=== PATIENT | female | born 1940 | race Caucasian/White ===

== ENCOUNTER 2016-09-18 16:00 | Emergency (ER) | payer MEDICARE ==
[~2016-09-18] VITALS: Ht 165.1 cm; Wt 81.1 kg
[~2016-09-18 16:00] MED LIST: AMLO5TAB2 PO; ATOR10TA20 PO; HYDR-2164 PO; HYDR-3989 PO; LABE200T PO; MEGE40TA PO; POTA20TA87 PO; RIVA20TA PO; SOTA80TA PO
--- OUTSIDE RECORDS SUMMARY | 2016-09-18 16:04 | XMS REPORT | Referral Summary ---
Author Author [facility] Organization [facility] Address Unknown Phone Unavailable Care Team Providers Care Antisqueak Chalker Name Role Phone HumbertopeaceMeron Primary Care Physician [phone] Encounter Date(s): 05/26/16 - 05/26/16 [facility] [address] [place], [place] [address] Discharge Disposition: 01-Home or Self Care Attending Physician: Ho Gallo MD Admitting Physician: Ho Gallo MD Vital Signs No data available for this section Problem List Condition Effective Dates Status Health Status Informant Acute Active pain(Confirmed) Arthritis(Confirmed) Active At risk for activity Active intolerance(Confirme d)1 At risk for Active infection(Confirmed) 2 At risk for Active injury(Confirmed)3 At risk of pressure Active sore(Confirmed) Atrial 03/08/14 Active fibrillation(Confirm ed)4 Blood clot in Resolved groin-2011(Confirmed ) Bronchitis(Confirmed Active ) Cataract(Confirmed) Active Chicken Active pox(Confirmed) hepatitis- developed Resolved from sulfa allergy(Confirmed) Hypercalcemia(Confir Active med) Hyperlipidemia(Confi Resolved rmed) Hypertension(Confirm Resolved ed) Impaired skin Active integrity(Confirmed) 5 Jaundice(Confirmed) Active Primary Active osteoarthritis of shoulder(Confirmed) Obesity(Confirmed) Active patient Pain(Confirmed) Active Pneumonia(Confirmed) 1997 Resolved Polymyalgia Active rheumatica(Confirmed ) 1Problem added automatically by system based on initiation of At Risk for Activity Intolerance Plan of Care 2Problem added automatically by system based on initiation of At Risk for Infection in Nutrition Plan of Care 3Problem added automatically by system based on initiation of Risk for Injury Plan of Care 4cardioversion 03/09/14 5Problem added automatically by system based on initiation of Impaired Skin Integrity Plan of Care Allergies, Adverse Reactions, Alerts Substance Reaction Severity Status angiotensin converting Active enzyme inhibitors morphine Active Sulfanilamide Active TraMADol Hydrochloride ER Active Medications atorvastatin 10 mg oral tablet 10 mg 1 tabs, Oral, Bedtime (once a day), 0 Refill(s) Start Date: 10/12/13 Status: Ordered labetalol 200 mg oral tablet 200 mg 1 tabs, Oral, BID, 0 Refill(s) Start Date: 10/12/13 Status: Ordered Norvasc 5 mg oral tablet 5 mg 1 tabs, Oral, Daily, 0 Refill(s) Start Date: 04/30/14 Status: Ordered potassium chloride 20 mEq oral tablet, extended release 20 mEq 1 tabs, Oral, Daily, 0 Refill(s) Start Date: 10/28/14 Status: Ordered sotalol 40 mg, Oral, BID, 0 Refill(s) Start Date: 03/19/14 Status: Ordered spironolactone 25 mg oral tablet 25 mg 1 tabs, Oral, Daily, 0 Refill(s) Start Date: 02/24/16 Status: Ordered Xarelto 10 mg oral tablet 10 mg 1 tabs, Oral, Daily, 0 Refill(s) Start Date: 03/19/14 Status: Ordered Results No data available for this section Immunizations Given and Recorded Vaccine Date Status Refusal Reason pneumococcal 23-polyvalent vaccine1 10/26/13 Given 1Early/Late Reason: Other : prioritizing Procedures Procedure Date Related Diagnosis Body Site Arthroplasty Shoulder Total Replacement 01/06/16 (Right)1 Atrial cardioversion 03/09/14 Arthroplasty Shoulder Total Replacement 10/25/13 (Left)2 Arthroplasty Shoulder Total Revision (Left)3 10/25/13 cholecystectomy 1990 Appendectomy Bilateral cataract surgery-1999 c5-7 fusion 2000 Cataract Hysterectomy hysterectomy- 1973 L5-S1 discectomy X2- 1994 Left shoulder jaleesa-arthroplasty- 2012 lt total knee arthroplasty 2011 R knee scope - 1984 R knee scope -1994 R total knee arthroplasty -2011 small bowel resection for obstruction- 2010 1auto-populated from documented surgical case 2auto-populated from documented surgical case 3auto-populated from documented surgical case Social History Social History Type Response Smoking Status Never smoker Assessment and Plan Extracted from: Title: Office Visit Note Author: Ho Gallo MD Date: 05/26/16 Assessment/Plan Orthopedic aftercare Ordered: Office Visit Level 3 Est 94271
--- OUTSIDE RECORDS SUMMARY | 2016-09-18 16:04 | XMS REPORT | Referral Summary ---
Author Author [facility] Organization [facility] Address Unknown Phone Unavailable Care Team Providers Care Molecular Physicist Name Role Phone Meron White Primary Care Physician [phone] Encounter [facility] [id number] Date(s): 08/11/15 - 08/11/15 [facility] [address] [place], [place] [address] Discharge Disposition: 01-Home or Self Care Attending Physician: Ho Gallo MD Admitting Physician: Ho Gallo MD Vital Signs No data available for this section Problem List Condition Effective Dates Status Health Status Informant Acute Active pain(Confirmed) Arthritis(Confirmed) Active At risk for Active injury(Confirmed)1 At risk of pressure Active sore(Confirmed) Atrial 03/08/14 Active fibrillation(Confirm ed)2 Blood clot in Resolved groin-2011(Confirmed ) Bronchitis(Confirmed Active ) Cataract(Confirmed) Active Chicken Active pox(Confirmed) hepatitis- developed Resolved from sulfa allergy(Confirmed) Hyperlipidemia(Confi Resolved rmed) Hypertension(Confirm Resolved ed) Jaundice(Confirmed) Active Primary Active osteoarthritis of shoulder(Confirmed) Obesity(Confirmed) Active patient Pain(Confirmed) Active Pneumonia(Confirmed) 1997 Resolved Polymyalgia Active rheumatica(Confirmed ) 1Problem added automatically by system based on initiation of Risk for Injury Plan of Care 2cardioversion 03/09/14 Allergies, Adverse Reactions, Alerts Substance Reaction Severity Status angiotensin converting Active enzyme inhibitors morphine Active Sulfanilamide Active TraMADol Hydrochloride ER Active Medications atorvastatin 10 mg oral tablet 1 tabs, Oral, Bedtime (once a day), 0 Refill(s) Start Date: 10/12/13 Status: Ordered cephalexin 500 mg oral tablet See Instructions, Take 4 tablets by mouth 1 hour prior to dental appointment, # 4 tabs, 4 Refill(s), Indication: prophylaxis, Pharmacy: [id number], Take 4 tablets by mouth 1 hour prior to dental appointment Start Date: 08/11/15 Stop Date: 09/10/15 Status: Ordered HYDROcodone-acetaminophen 5 mg-325 mg oral tablet tabs, Oral, q6hr, 0 Refill(s) Start Date: 07/22/14 Status: Ordered labetalol 200 mg oral tablet 1 tabs, Oral, BID, 0 Refill(s) Start Date: 10/12/13 Status: Ordered Norvasc 5 mg oral tablet 1 tabs, Oral, Daily, 0 Refill(s) Start Date: 04/30/14 Status: Ordered potassium chloride 20 mEq oral tablet, extended release 40 mEq 2 tabs, Oral, BID, 0 Refill(s) Start Date: 10/28/14 Status: Ordered sotalol 40 mg, Oral, BID, 0 Refill(s) Start Date: 03/19/14 Status: Ordered Xarelto 10 mg oral tablet 1 tabs, Oral, Daily, 0 Refill(s) Start Date: 03/19/14 Status: Ordered Results No data available for this section Immunizations Vaccine Date Refusal Reason pneumococcal 23-polyvalent vaccine1 10/26/13 1Early/Late Reason: Other : prioritizing Procedures Procedure Date Related Diagnosis Body Site Atrial cardioversion 03/09/14 Arthroplasty Shoulder Total Replacement 10/25/13 (Left)1 Arthroplasty Shoulder Total Revision (Left)2 10/25/13 cholecystectomy 1990 Appendectomy Bilateral cataract surgery-1999 c5-7 fusion 2000 Cataract Hysterectomy hysterectomy- 1973 L5-S1 discectomy X2- 1994 Left shoulder jaleesa-arthroplasty- 2012 lt total knee arthroplasty 2011 R knee scope - 1984 R knee scope -1994 R total knee arthroplasty -2011 small bowel resection for obstruction- 2010 1auto-populated from documented surgical case 2auto-populated from documented surgical case Social History Social History Type Response Smoking Status Never smoker Assessment and Plan No data available for this section
--- OUTSIDE RECORDS SUMMARY | 2016-09-18 16:04 | XMS REPORT | Referral Summary ---
Author Author [facility] Organization [facility] Address Unknown Phone Unavailable Care Team Providers Care Cone Classifier Tender Name Role Phone HumbertopeaceMeron Primary Care Physician [phone] Encounter [facility] [id number] Date(s): 04/07/16 - 04/07/16 [facility] [address] [place], [place] [address] Discharge Diagnosis: Status post total shoulder arthroplasty. Discharge Disposition: 01-Home or Self Care Attending [...] 0 Refill(s) Start Date: 10/12/13 Status: Ordered Megace ES 50 mg, Oral, BID, 0 Refill(s) Start Date: 01/06/16 Status: Ordered [place] 5 mg-325 mg oral tablet 1 tabs, Oral, q4hr, as needed for pain, # 50 tabs, 0 Refill(s) Start Date: 04/07/16 Stop Date: 04/17/16 Status: Ordered Norvasc 5 mg oral tablet 5 mg 1 tabs, Oral, Daily, 0 Refill(s) Start Date: 04/30/14 Status: Ordered potassium chloride 20 mEq oral tablet, extended release 20 mEq 1 tabs, Oral, BID, 0 Refill(s) Start [...]
--- OUTSIDE RECORDS SUMMARY | 2016-09-18 16:04 | XMS REPORT | Referral Summary ---
Author Author [facility] Organization [facility] Address Unknown Phone Unavailable Care Team Providers Care Quality Assurance Calibrator Name Role Phone Cindy Meron Primary Care Physician [phone] Encounter Date(s): 01/29/15 - 01/29/15 [facility] [address] [place], [place] [address] Discharge Diagnosis: Primary osteoarthritis of shoulder Discharge Disposition: 01-Home or Self Care Attending [...] 0 Refill(s) Start Date: 10/12/13 Status: Ordered HYDROcodone-acetaminophen 5 mg-325 mg oral [...] Procedures Procedure Date Related Diagnosis Body Site Arthrocentesis, aspiration and/or injection, 01/29/15 major joint or bursa (eg, shoulder, hip, knee, subacromial bursa); without ultrasound guidance Atrial cardioversion 03/09/14 Arthroplasty Shoulder Total Replacement [...] Visit Note Author: Ho Gallo MD Date: 01/29/15 Assessment/Plan Primary osteoarthritis of shoulder A 15 minute discussion was held today with the patient at bedside regarding the principal diagnoses, focusing on the pertinent exam findings. Patient states that her symptoms are recurrent despite injections, but she seems to be having good pain relief intervals in between the injections. Therefore, she would like to have another right shoulder intra-articular injection. I agree with this, I provided her with this today, under sterile conditions, consisting of 40 mg Kenalog, 4 mL Marcaine , 4 mL lidocaine. This is tolerated by the patient. The patient will follow- up with me on an as-needed basis, and needs to contact the clinic with any questions may arise in the meantime. Ordered: Office Visit Level 3 Est 96506
--- OUTSIDE RECORDS SUMMARY | 2016-09-18 16:05 | XMS REPORT | Referral Summary ---
Author Author [facility] Organization [facility] Address Unknown Phone Unavailable Care Team Providers Care Mountain Or Glacier Guide Name Role Phone Cindy Meron Primary Care Physician [phone] Encounter Date(s): 12/19/15 - 12/19/15 [facility] [address] [place], [place] [address] Discharge Disposition: 01-Home or Self Care Attending [...] med) Hyperlipidemia(Confi Resolved rmed) Hypertension(Confirm Resolved ed) Jaundice(Confirmed) [...] 0 Refill(s) Start Date: 10/12/13 Status: Ordered hydrochlorothiazide 25 mg oral tablet 25 mg 1 tabs, Oral, Daily, 0 Refill(s) Start Date: 11/19/15 Status: Ordered HYDROcodone-acetaminophen 5 mg-325 mg oral [...] Refill(s) Start Date: 03/19/14 Status: Ordered Results Chemistry Most recent to 1 oldest [Reference Range]: Estimated Creatinine 50.77 mL/min Clearance (12/19/15 9:46 AM) Immunizations Vaccine Date Refusal Reason pneumococcal 23-polyvalent [...]
--- OUTSIDE RECORDS SUMMARY | 2016-09-18 16:05 | XMS REPORT | Referral Summary ---
Author Author [facility] Organization [facility] Address Unknown Phone Unavailable Care Team Providers Care It Application Architect Name Role Phone HumbertopeaceMeron Primary Care Physician [phone] Encounter [facility] [id number] Date(s): 01/21/16 - 01/21/16 [facility] [address] [place], [place] [address] Discharge Diagnosis: Orthopedic aftercare Discharge Disposition: 01-Home or Self Care Attending Physician: Karen Gavin APRN Admitting Physician: Karen Gavin APRN Vital Signs No data available for this [...] 0 Refill(s) Start Date: 10/12/13 Status: Ordered Benadryl 25 mg oral tablet 25 mg 1 tabs, Oral, q6hr, Pruritus/Itching, 0 Refill(s) Start Date: 01/08/16 Status: Ordered bisacodyl 10 mg rectal suppository 10 mg 1 supp, Rectal, Daily, Constipation, 0 Refill(s) Start Date: 01/08/16 Status: Ordered Colace 100 mg oral capsule 100 mg 1 caps, Oral, BID, 0 Refill(s) Start Date: 01/08/16 Status: Ordered hydrochlorothiazide 25 mg oral tablet 25 mg 1 tabs, Oral, Daily, 0 Refill(s) Start Date: 11/19/15 Status: Ordered HYDROcodone-acetaminophen 5 mg-325 mg oral tablet 1 tabs, Oral, q6hr, as needed for pain, # 60 tabs, 0 Refill(s) Start Date: 01/21/16 Stop Date: 02/04/16 Status: Ordered labetalol 200 mg oral tablet 200 mg 1 tabs, Oral, BID, 0 Refill(s) Start Date: 10/12/13 Status: Ordered Maalox Advanced Maximum Strength oral suspension 30 mL, Oral, q6hr, Dyspepsia/Indigestion, 0 Refill(s) Start Date: 01/08/16 Status: Ordered Megace ES 50 mg, Oral, BID, 0 Refill(s) Start Date: 01/06/16 Status: Ordered MiraLax 17 g 1 packets, Oral, BID, 0 Refill(s) Start Date: 01/08/16 Status: Ordered Norvasc 5 mg oral tablet 5 mg 1 tabs, Oral, Daily, 0 Refill(s) Start Date: 04/30/14 Status: Ordered potassium chloride 20 mEq oral tablet, extended release 20 mEq 1 tabs, Oral, BID, 0 Refill(s) Start Date: 10/28/14 Status: Ordered Senokot 8.6 mg oral tablet 8.6 mg 1 tabs, Oral, BID, 0 Refill(s) Start Date: 01/08/16 Status: Ordered sotalol 40 mg, Oral, BID, [...] Extracted from: Title: Office Visit Note Author: Karen Gavin APRN Date: 01/21/16 Assessment/Plan Orthopedic aftercare [place] where removed in clinic today and steri- strips put in their place. Pt will follow up in clinic again with Dr. Gallo in 4 weeks. Pt is to continue home exercises and wearing her brace. All questions where answered in clinic at this time. My card was given to the pt incase she has any questions or concerns prior to her next follow up appointment. Patient was alsogiven there implant cardand educatedabout calling us prior to any dental appointmentsand getting a prescription for antibiotics to take. Ordered: Postoperative Est [id number]
--- OUTSIDE RECORDS SUMMARY | 2016-09-18 16:05 | XMS REPORT | Referral Summary ---
Author Author [facility] Organization [facility] Address Unknown Phone Unavailable Care Team Providers Care Truck Shop Mechanic Name Role Phone Cindy Meron Primary Care Physician [phone] Encounter Date(s): 10/28/14 - 10/28/14 [facility] [address] [place], [place] [address] Discharge Disposition: 01-Home or Self Care Attending Physician: Ho Gallo MD Admitting Physician: Ho Gallo MD Vital Signs Most recent to 1 oldest [Reference Range]: Temperature Tympanic 36.4 degC [36.6-38.1 degC] *LOW* (10/28/14 11:19 AM) Problem List Condition Effective Dates Status Health Status Informant Acute Active pain(Confirmed) Arthritis(Confirmed) Active At risk for Active injury(Confirmed)1 At risk of pressure Active sore(Confirmed) Atrial 03/08/14 Active fibrillation(Confirm ed)2 Blood clot in Resolved groin-2011(Confirmed ) Bronchitis(Confirmed Active ) Cataract(Confirmed) Active Chicken Active pox(Confirmed) Primary Active osteoarthritis of shoulder(Confirmed) hepatitis- developed Resolved from sulfa allergy(Confirmed) Hyperlipidemia(Confi Resolved rmed) Hypertension(Confirm Resolved ed) Jaundice(Confirmed) Active Obesity(Confirmed) Active patient Pain(Confirmed) Active Pneumonia(Confirmed) 1997 [...] 0 Refill(s) Start Date: 03/19/14 Status: Ordered tiZANidine 4 mg oral tablet 1 tabs, Oral, Daily, 0 Refill(s) Start Date: 10/12/13 Status: Ordered Xarelto 10 mg oral tablet 1 tabs, Oral, Daily, 0 Refill(s) Start Date: 03/19/14 Status: Ordered Results No data available for this section Immunizations Vaccine Date Refusal Reason pneumococcal 23-polyvalent vaccine1 10/26/13 1Early/Late Reason: Other : prioritizing Procedures Procedure Date Related Diagnosis Body Site Arthrocentesis, aspiration and/or injection, 10/28/14 major joint or bursa (eg, shoulder, hip, [...] Visit Note Author: Ho Gallo MD Date: 10/28/14 Assessment/Plan S/P shoulder joint replacement Is a 10 minute discussion was held today with the patient and her at bedside regarding further management. The pertinent exam findings and radiographs reviewed and all questions were answered. With respect the left side are recommend she continue activity as tolerated. She is using spacer quite well and at this point she no indication for any further procedures. With respect the right side, I recommended a repeat glenohumeral joint injection. She agreed, and this is done today under sterile conditions, consisting of 40 mg Kenalog, 4 mL Marcaine, 4 mL lidocaine. This was tolerated by the patient. She is a follow-up with me in about 3 months time for her right shoulder. All questions were answered today. Ordered: Office Visit Level 3 Est 13102
--- OUTSIDE RECORDS SUMMARY | 2016-09-18 16:05 | XMS REPORT | Referral Summary ---
Author Author [facility] Organization [facility] Address Unknown Phone Unavailable Care Team Providers Care Anesthesiology Physician Assistant Name Role Phone HumbertopeaceMeron Primary Care Physician [phone] Encounter [facility] [id number] Date(s): 01/06/16 - 01/08/16 [facility] [address] [place] [address] Discharge Disposition: 01-Home or Self Care Attending Physician: Ho Gallo MD Admitting Physician: Ho Gallo MD Vital Signs Most recent to 1 oldest [Reference Range]: Temperature Oral 37.1 degC [35.8-37.3 degC] (01/08/16 8:10 AM) Temperature Tympanic 36.3 degC [36.6-38.1 degC] *LOW* (01/06/16 5:40 AM) Temperature Skin 36.5 degC [36-37 degC] (01/06/16 10:45 AM) Temperature Temporal 36.2 degC Artery [36.3-37.8 *LOW* degC] (01/06/16 10:20 AM) Peripheral Pulse 70 bpm Rate [60-100 bpm] (01/08/16 8:10 AM) Heart Rate Monitored 60 bpm [60-100 bpm] (01/06/16 10:45 AM) Respiratory Rate 18 br/min [14-20 br/min] (01/08/16 8:10 AM) Blood Pressure 107/70 mmHg [90-140/60-90 mmHg] (01/08/16 8:10 AM) Mean Arterial 87 mmHg Pressure, Cuff (01/06/16 10:45 AM) SpO2 94 % (01/08/16 8:10 AM) Problem List Condition Effective Dates Status [...] mg oral tablet 1 tabs, Oral, q6hr, # 90 tabs, 0 Refill(s), other reason (Rx) Start Date: 01/08/16 Stop Date: 01/22/16 Status: Ordered labetalol 200 mg oral tablet [...] Refill(s) Start Date: 03/19/14 Status: Ordered Results Hematology Most recent to 1 oldest [Reference Range]: WBC [4.8-10.8 9.3 10*3/uL 10*3/uL] (01/08/16 4:42 AM) RBC [4.00-5.20] 3.86 *LOW* (01/08/16 4:42 AM) Hgb [12.0-16.0 11.7 gm/dL gm/dL] *LOW* (01/08/16 4:42 AM) Hct [37.0-47.0 %] 35.5 % *LOW* (01/08/16 4:42 AM) MCV [82.0-99.0 fL] 92.0 fL (01/08/16 4:42 AM) MCH [27.0-32.0 pg] 30.3 pg (01/08/16 4:42 AM) MCHC [32.0-36.0 33.0 gm/dL gm/dL] (01/08/16 4:42 AM) RDW [11.5-14.5 %] 15.2 % *HI* (01/08/16 4:42 AM) Platelet [150-400 216 10*3/uL 10*3/uL] (01/08/16 4:42 AM) MPV [9.4-12.4 fL] 11.2 fL (01/08/16 4:42 AM) Immature 0.2 % Granulocytes (01/08/16 4:42 AM) [0.0-1.0 %] Neutrophils [51-75 55 % %] (01/08/16 4:42 AM) Lymphocytes [20-46 32 % %] (01/08/16 4:42 AM) Monocytes [4-11 %] 10 % (01/08/16 4:42 AM) Eosinophils [0-4 %] 3 % (01/08/16 4:42 AM) Basophils [0-2 %] 0 % (01/08/16 4:42 AM) Neutro Absolute 5.10 10*3 [1.90-7.00 10*3] (01/08/16 4:42 AM) Lymph Absolute 2.96 10*3 [0.80-3.30 10*3] (01/08/16 4:42 AM) [place] Absolute 0.90 10*3 [0.30-1.00 10*3] (01/08/16 4:42 AM) Eos Absolute 0.24 10*3 [0.00-0.50 10*3] (01/08/16 4:42 AM) Baso Absolute 0.04 10*3 [0.00-0.20 10*3] (01/08/16 4:42 AM) Nucleated RBC 0.0 /100 WBC Automated [0 /100 (01/08/16 4:42 AM) WBC] Chemistry Most recent to 1 oldest [Reference Range]: Sodium Lvl [136-144 138 mEq/L mEq/L] (01/08/16 4:42 AM) Potassium Lvl 3.2 mEq/L [3.6-5.1 mEq/L] *LOW* (01/08/16 4:42 AM) Chloride [99-109 109 mEq/L mEq/L] (01/08/16 4:42 AM) CO2 [22-32 mEq/L] 24 mEq/L (01/08/16 4:42 AM) AGAP [3-20] 5 (01/08/16 4:42 AM) BUN [4-20 mg/dL] 7 mg/dL (01/08/16 4:42 AM) Glucose Lvl [70-100 118 mg/dL mg/dL] *HI* (01/08/16 4:42 AM) Creatinine Lvl 0.83 mg/dL [0.44-1.03 mg/dL] (01/08/16 4:42 AM) eGFR [>60] >60 1 (01/08/16 4:42 AM) Calcium Lvl 8.5 mg/dL [8.6-10.0 mg/dL] *LOW* (01/08/16 4:42 AM) Blood Glucose, 90 mg/dL Capillary [70-100 (01/06/16 5:23 AM) mg/dL] 1Result Comment: Multiply eGFR results by 1.21 for race. Immunizations Vaccine Date Refusal Reason pneumococcal 23-polyvalent [...]
--- OUTSIDE RECORDS SUMMARY | 2016-09-18 16:05 | XMS REPORT | Referral Summary ---
Author Organization Unknown Address Unknown Phone Unavailable Care Team Providers Care Leisure Travel Agent Name Role Phone CindyMeron Primary Care Physician [phone] Encounter [facility] [id number] Date(s): 07/22/14 - 07/22/14 [facility] [address] [place] [address] [facility] Discharge Diagnosis: Hypercalcemia Discharge Disposition: Home or Self Care Attending Physician: Junior Jorgensen MD Admitting Physician: Junior Jorgensen MD Vital Signs Most recent to 1 oldest [Reference Range]: Peripheral Pulse 84 bpm Rate [60-100 bpm] (07/22/14 1:03 PM) Blood Pressure 124/78 mmHg [90-140/60-90 mmHg] (07/22/14 1:03 PM) Problem List Condition Effective Dates Status Health Status Informant Acute Active pain(Confirmed) Arthritis(Confirmed) Active At risk for Active injury(Confirmed)1 At risk of pressure Active sore(Confirmed) Atrial 03/08/14 Active fibrillation(Confirm ed)2 Blood clot in Resolved groin-2011(Confirmed ) hepatitis- developed Resolved from sulfa allergy(Confirmed) Hyperlipidemia(Confi Resolved rmed) Hypertension(Confirm Resolved ed) Pain(Confirmed) Active Pneumonia(Confirmed) 1997 Resolved Polymyalgia Active [...] 0 Refill(s) Start Date: 10/12/13 Status: Ordered calcium carbonate 600 mg, Oral, BID, 0 Refill(s) Start Date: 10/12/13 Status: Ordered cephalexin 500 mg oral tablet See Instructions, Take 4 tablets by mouth 1 hour prior to dental appointment, # 4 tabs, 0 Refill(s), Indication: prophylaxis, Pharmacy: [id number], Take 4 tablets by mouth 1 hour prior to dental appointment Special Instructions: Take 4 tablets by mouth 1 hour prior to dental appointment Start Date: 07/22/14 Stop Date: 08/05/14 Status: Ordered cloNIDine 0.3 mg oral tablet 0.5 tabs, Oral, Daily, 0 Refill(s) Start Date: [...] chloride 20 mEq oral tablet, extended release 1 tabs, Oral, Daily, # 30 tabs, 0 Refill(s) Start Date: 10/30/13 Status: Ordered sotalol 40 mg, Oral, BID, 0 Refill(s) Start Date: 03/19/14 Status: Ordered tiZANidine 4 mg oral tablet 1 tabs, Oral, Daily, 0 Refill(s) Start Date: 10/12/13 Status: Ordered Xarelto 10 mg oral tablet 1 tabs, Oral, Daily, 0 Refill(s) Start Date: 03/19/14 Status: Ordered Results Chemistry Most recent to 1 oldest [Reference Range]: Sodium Lvl [135-144 143 mEq/L mEq/L] (07/22/14 1:53 PM) Potassium Lvl 4.1 mEq/L [3.5-5.2 mEq/L] (07/22/14 1:53 PM) Chloride [99-111 103 mEq/L mEq/L] (07/22/14 1:53 PM) CO2 [22-31 mEq/L] 31 mEq/L (07/22/14 1:53 PM) AGAP [3-20] 9 (07/22/14 1:53 PM) BUN [10-20 mg/dL] 19 mg/dL (07/22/14 1:53 PM) Glucose Lvl [70-99 101 mg/dL mg/dL] *HI* (07/22/14 1:53 PM) Creatinine Lvl 0.90 mg/dL [0.57-1.11 mg/dL] (07/22/14 1:53 PM) eGFR [>60 mL/min] >60 mL/min 1 (07/22/14 1:53 PM) Calcium Lvl 10.5 mg/dL [8.9-10.5 mg/dL] (07/22/14 1:53 PM) Albumin Lvl [3.4-4.8 4.3 gm/dL gm/dL] (07/22/14 1:53 PM) Phosphorus [2.3-4.7 2.9 mg/dL mg/dL] (07/22/14 1:53 PM) Calcium Ionized 1.41 mmol/L [1.19-1.41 mmol/L] (07/22/14 1:53 PM) PTH (Parathyroid 40.7 pg/mL Hormone) [6.6-88.9 (07/22/14 1:53 PM) pg/mL] 1Result Comment: Multiply eGFR results by 1.21 for race. Immunizations Vaccine Date Refusal Reason pneumococcal 23-polyvalent vaccine1 10/26/13 1Early/Late Reason: Other : prioritizing Procedures Procedure Date Related Diagnosis Body Site Atrial cardioversion 03/09/14 Arthroplasty Shoulder Total Replacement 10/25/13 (Left)1 Arthroplasty Shoulder Total Revision (Left)2 10/25/13 cholecystectomy 1990 Bilateral cataract surgery-1999 c5-7 fusion 2000 hysterectomy- 1973 L5-S1 discectomy X2- 1994 Left [...] Extracted from: Title: Office Visit Note Author: Junior Jorgensen MD Date: 07/22/14 Assessment/Plan 1.Hypercalcemia We are going to repeat serum calcium with ionized calcium , PTH and PTH related peptide. We'll also obtain 24-hour urine collection for calcium. We will obtain a thyroid ultrasound. Have asked the patient to stop her hydrochlorothiazide 2 weeks prior to obtaining the urine collection. We'll also plan on stopping her oral calcium. Follow-up after labs and ultrasound. Ordered: 1,25-Dihydroxyvitamin D Level-[place] Calcium Level 24 Hour Urine Creatinine Lvl 24 Hour Urine PTH-Related Peptide-[facility] Thyroid Vitamin D 25 Hydroxy Level Extracted from: Title: Ambulatory Patient Education Author: Junior Jorgensen MD Date: Family Medicine Hypercalcemia Hypercalcemia means the calcium in your blood is too high. Calcium in our blood is important for the control of many things, such as: Blood clotting. Conducting of nerve impulses. Muscle contraction. Maintaining teeth and bone health. Other body functions. In the bloodstream, calcium maintains a constant balance with another mineral, phosphate. Calcium is absorbed into the body through the small intestine. This is helped by Vitamin D. Calcium levels are maintained mostly by vitamin D and a hormone (parathyroid hormone). But the kidneys also help. Hypercalcemia can happen when the concentration of calcium is too high for the kidneys to maintain balance. The body maintains a balance between the calcium we eat and the calcium already in our body. If calcium intake is increased or we cannot use calcium properly, there may be problems. Some common sources of calcium are : Dairy products. Nuts. Eggs. Whole grains. Legumes. Green leafy vegetables. CAUSES There are many causes of this condition, but some common ones are: Hyperparathyroidism. This is an over activity of the parathyroid gland. Cancers of the breast, kidney, lung, head and neck are common causes of calcium increases. Medications that cause you to urinate more often (diuretics ), nausea, vomiting and diarrhea also increase the calcium in the blood. Overuse of calcium-containing antacids. SYMPTOMS Many patients with mild hypercalcemia have no symptoms. For those with symptoms common problems include: Loss of appetite. Constipation. Increased thirst. Heart rhythm changes. Abnormal thinking. Nausea. Abdominal pain. Kidney stones. Mood swings. Coma and when severe. Vomiting. Increased urination. High blood pressure. Confusion. DIAGNOSIS Your caregiver will do a medical history and perform a physical exam on you. Calcium and parathyroid hormone (PTH) may be measured with a blood test. TREATMENT The treatment depends on the calcium level and what is causing the higher level. Hypercalcemia can be lifethreatening. Fast lowering of the calcium level may be necessary. With normal kidney function, fluids can be given by vein to clear the excess calcium. Hemodialysis works well to reduce dangerous calcium levels if there is poor kidney function. This is a procedure in which a machine is used to filter out unwanted substances. The blood is then returned to the body. Drugs, such as diuretics, can be given after adequate fluid intake is established. These medications help the kidneys get rid of extra calcium. Drugs that lessen (inhibit ) bone loss are helpful in gaining long-term control. Phosphate pills help lower high calcium levels caused by a low supply of phosphate. Anti-inflammatory agents such as steroids are helpful with some cancers and toxic levels of vitamin D. Treatment of the underlying cause of the hypercalcemia will also correct the imbalance. Hyperparathyroidism is usually treated by surgical removal of one or more of the parathyroid glands and any tissue, other than the glands themselves, that is producing too much hormone. The hypercalcemia caused by cancer is difficult to treat without controlling the cancer. Symptoms can be improved with fluids and drug therapy as outlined above. PROGNOSIS Surgery to remove the parathyroid glands is usually successful. This also depends on the amount of damage to the kidneys and whether or not it can be treated. Mild hypercalcemia can be controlled with good fluid intake and the use of effective medications. Hypercalcemia often develops as a late complication of cancer. The expected outlook is poor without effective anticancer therapy. PREVENTION If you are at risk for developing hypercalcemia, be familiar with early symptoms. Report these to your caregiver. Good fluid intake (up to four quarts of liquid a day if possible) is helpful. Try to control nausea and vomiting, and treat fevers to avoid dehydration. Lowering the amount of calcium in your diet is not necessary. High blood calcium reduces absorption of calcium in the intestine. Stay as active as possible. SEEK IMMEDIATE MEDICAL CARE IF: You develop chest pain, sweating, or shortness of breath. You get confused, feel faint or pass out. You develop severe nausea and vomiting. MAKE SURE YOU: Understand these instructions. Will watch your condition. Will get help right away if you are not doing well or get worse. Document Released: 07/09/2005 Document Revised: 08/20/2013 Document Reviewed: [facility] Patient Information 2014 [employer] [facility]. No follow up information was provided.
--- OUTSIDE RECORDS SUMMARY | 2016-09-18 16:05 | XMS REPORT | Referral Summary ---
Author Author [facility] Organization [facility] Address Unknown Phone Unavailable Care Team Providers Care Scanning Coordinator Name Role Phone Cindy Meron Primary Care Physician [phone] Encounter Date(s): 10/28/14 - 10/28/14 [facility] [address] [address] [place], [place] [address] Discharge Disposition: 01-Home or Self Care [...] today. Ordered: Office Visit Level 3 Est 48080
--- OUTSIDE RECORDS SUMMARY | 2016-09-18 16:05 | XMS REPORT | Referral Summary ---
Author Author [facility] Organization [facility] Address Unknown Phone Unavailable Care Team Providers Care Music Minister Name Role Phone Meron White Primary Care Physician [phone] Encounter [facility] [id number] Date(s): 09/01/15 - 09/01/15 [facility] [address] [place] [address] [facility] Discharge Diagnosis: Hypercalcemia Discharge Disposition: 01-Home or Self Care Attending Physician: Junior Jorgensen MD Admitting Physician: Junior Jorgensen MD Vital Signs Most recent to 1 oldest [Reference Range]: Peripheral Pulse 72 bpm Rate [60-100 bpm] (09/01/15 11:30 AM) Blood Pressure 120/76 mmHg [90-140/60-90 mmHg] (09/01/15 11:30 AM) Problem List Condition Effective Dates Status [...] Visit Note Author: Junior Jorgensen MD Date: 09/01/15 Assessment/Plan 1.Hypercalcemia calcium is normal. on HCTZ. continue same management. i have released the patient back to her pcp. f/u as needed.
--- OUTSIDE RECORDS SUMMARY | 2016-09-18 16:05 | XMS REPORT | Referral Summary ---
Author Author [facility] Organization [facility] Address Unknown Phone Unavailable Care Team Providers Care Cnc Operator Programmer Name Role Phone Cindy Meron Primary Care Physician [phone] Encounter [facility] [id number] Date(s): 05/12/15 - 05/12/15 [facility] [address] [address] [place], [place] [address] Discharge Diagnosis: Primary osteoarthritis of shoulder Discharge [...] Visit Note Author: Ho Gallo MD Date: 05/12/15 Assessment/Plan Primary osteoarthritis of shoulder A 15 minute discussion was held today with the patient and her at bedside regarding further management. The pertinent exam findings and radiographs reviewed and all questions were answered. I recommended a repeat glenohumeral joint injection. After a discussion of the risks and benefits writtenconsent was obtained. She agreed, and this is done today under sterile conditions, consisting of 40 mg Kenalog, 4 mL Marcaine, 4 mL lidocaine. This was tolerated by the patient. She isto follow-up with me in about 3 months time for her right shoulder. All questions were answered today. Ordered: Office Visit Level 3 Est 48500
--- OUTSIDE RECORDS SUMMARY | 2016-09-18 16:05 | XMS REPORT | Referral Summary ---
Author Author [facility] Organization [facility] Address Unknown Phone Unavailable Care Team Providers Care Medical Billing Clerk Name Role Phone Cindy Meron Primary Care Physician [phone] Encounter Date(s): 11/19/15 - 11/19/15 [facility] [address] [place], [place] [address] Discharge Diagnosis: Primary osteoarthritis, right shoulder Discharge Disposition: 01-Home or Self Care [...]
--- OUTSIDE RECORDS SUMMARY | 2016-09-18 16:05 | XMS REPORT | Referral Summary ---
Author Author [facility] Organization [facility] Address Unknown Phone Unavailable Care Team Providers Care Student Outreach Coordinator Name Role Phone Cindy Meron Primary Care Physician [phone] Encounter [facility] [id number] Date(s): 10/28/14 - 10/28/14 [facility] [address] [address] [place], [place] [address] Discharge Disposition: 01-Home or Self Care [...] 4 tabs, 0 Refill(s), Indication: prophylaxis, Pharmacy: [facility] [id number], Take 4 tablets by mouth 1 hour prior to dental appointment Start Date: 01/29/15 Stop Date: 04/02/15 Status: Ordered HYDROcodone-acetaminophen 5 mg-325 mg oral [...] today. Ordered: Office Visit Level 3 Est 05780
--- OUTSIDE RECORDS SUMMARY | 2016-09-18 16:05 | XMS REPORT | Referral Summary ---
Author Author [facility] Organization [facility] Address Unknown Phone Unavailable Care Team Providers Care Breast Puller Name Role Phone Cindy Meron Primary Care Physician [phone] Encounter Date(s): 10/28/14 - 10/28/14 [facility] [address] [place], [place] [address] Discharge Disposition: 01-Home or Self [...] today. Ordered: Office Visit Level 3 Est 37244
--- OUTSIDE RECORDS SUMMARY | 2016-09-18 16:06 | XMS REPORT | Referral Summary ---
Author Author [facility] Organization [facility] Address Unknown Phone Unavailable Care Team Providers Care Crude Oil Treater Name Role Phone Cindy Meron Primary Care Physician [phone] Encounter [facility] [id number] Date(s): 10/28/14 - 10/28/14 [facility] [address] [place], [place] [address] Discharge Disposition: 01-Home or Self Care Attending [...] 4 tabs, 0 Refill(s), Indication: prophylaxis, Pharmacy: [facility] [id number], Take 4 tablets by mouth 1 hour [...] 1973 L5-S1 discectomy X2- 1994 Left shoulder jlaeesa-arthroplasty- 2012 lt total knee arthroplasty 2011 R [...] today. Ordered: Office Visit Level 3 Est 38526
--- OUTSIDE RECORDS SUMMARY | 2016-09-18 16:06 | XMS REPORT | Referral Summary ---
Author Author [facility] Organization [facility] Address Unknown Phone Unavailable Care Team Providers Care Health Teacher Name Role Phone Meron White Primary Care Physician [phone] Encounter [facility] [id number] Date(s): 02/24/16 - 02/24/16 [facility] [address] [place], [place] [address] Discharge Diagnosis: Status post total shoulder arthroplasty Discharge Disposition: 01-Home or Self Care Attending [...] 0 Refill(s) Start Date: 11/19/15 Status: Ordered labetalol 200 mg oral tablet 200 mg 1 tabs, Oral, BID, 0 Refill(s) Start Date: 10/12/13 Status: Ordered Megace ES 50 mg, Oral, BID, 0 Refill(s) Start Date: 01/06/16 Status: Ordered Norvasc 5 mg oral tablet [...]
--- OUTSIDE RECORDS SUMMARY | 2016-09-18 16:06 | XMS REPORT | Referral Summary ---
Author Organization Unknown Address Unknown Phone Unavailable Care Team Providers Care Asw/Asuw Tactical Air Controller Name Role Phone Meron White Primary Care Physician [phone] Encounter [facility] [id number] Date(s): 07/22/14 - 07/22/14 [facility] [address] [place], [place] [address] Discharge Diagnosis: H/O shoulder surgery Discharge Diagnosis: Shoulder pain Discharge Diagnosis: S/P hardware removal Discharge Disposition: Home or Self Care Attending Physician: Ho Gallo MD Admitting Physician: Ho Gallo MD Referring Physician: Gaurang White MD Vital Signs No data available for [...] 4 tabs, 0 Refill(s), Indication: prophylaxis, Pharmacy: [facility] [id number], Take 4 tablets by mouth 1 hour [...] Diagnosis Body Site Arthrocentesis, aspiration and/or injection, 07/22/14 major joint or bursa (eg, shoulder, hip, [...] Visit Note Author: Ho Gallo MD Date: 07/22/14 Assessment/Plan H/O shoulder surgery, S/P hardware removal A 15 minute discussion was held today with the patient at bedside regarding further management. The pertinent exam findings and radiographs were reviewed and all questions were answered. I recommend she continue her current activity level of the left side and have going humeral joint injection on the right side. She agrees, and a right shoulder glenohumeral joint injection was given under sterile conditions today, consisting of 40 mg Kenalog, 4 mL Marcaine , 4 mL lidocaine. She may continue her current activity level with the left side as well and follow up with me in about 3 months time. She is going to have some dental work done here about a month and I recommended antibiotics before the procedure. All questions were answered today. Ordered: cephalexin, See Instructions, Take 4 tablets by mouth 1 hour prior to dental appointment, # 4 tabs, 0 Refill(s), Indication: prophylaxis, Pharmacy: [facility] [id number], Take 4 tablets by mouth 1 hour prior to dental appointment Office Visit Level 3 Est 33419 Shoulder pain Ordered: Arthro/Asp Major Joint Inj (Shoulder, Hip, Knee) 87240
--- OUTSIDE RECORDS SUMMARY | 2016-09-18 16:06 | XMS REPORT | Referral Summary ---
Author Organization Unknown Address Unknown Phone Unavailable Care Team Providers Care Powerhouse Tender Name Role Phone CindyMeron Primary Care Physician [phone] Encounter [facility] [id number] Date(s): 08/29/14 - 08/29/14 [facility] [address] [place] [address] [facility] Discharge Diagnosis: Hypercalcemia Discharge Disposition: Home or Self Care Attending Physician: Junior Jorgensen MD Admitting Physician: Junior Jorgensen MD Vital Signs Most recent to 1 oldest [Reference Range]: Peripheral Pulse 62 bpm Rate [60-100 bpm] (08/29/14 1:31 PM) Blood Pressure 142/80 mmHg [90-140/60-90 mmHg] *HI* (08/29/14 1:31 PM) Problem List Condition Effective Dates Status [...] 0 Refill(s) Start Date: 10/12/13 Status: Ordered cloNIDine 0.3 mg oral tablet [...] Visit Note Author: Junior Jorgensen MD Date: 08/29/14 Assessment/Plan 1.Hypercalcemia d/c calcium. no indications for surgery. repeat calcium in 2 weeks . if elevated will d/c hctz. get most recent BMD. if older than 2 years will get new BMD. Ordered: Renal Function Panel
--- OUTSIDE RECORDS SUMMARY | 2016-09-18 16:06 | XMS REPORT | Referral Summary ---
Author Author [facility] Organization [facility] Address Unknown Phone Unavailable Care Team Providers Care Machine Stuffer Name Role Phone Meron White Primary Care Physician [phone] Encounter [facility] [id number] Date(s): 01/29/15 - 01/29/15 [facility] [address] [place], [place] [address] Discharge Diagnosis: Primary osteoarthritis of shoulder [...] 4 tabs, 0 Refill(s), Indication: prophylaxis, Pharmacy: [facility] [id number], Take 4 tablets by mouth 1 hour [...] meantime. Ordered: Office Visit Level 3 Est 57701
--- OUTSIDE RECORDS SUMMARY | 2016-09-18 16:06 | XMS REPORT | Referral Summary ---
Author Author [facility] Organization [facility] Address Unknown Phone Unavailable Care Team Providers Care Technology Integration Specialist Name Role Phone Cindy Meron Primary Care Physician [phone] Encounter [facility] [id number] Date(s): 10/28/14 - 10/28/14 [facility] [address] [facility] [address] [place], [place] [address] Discharge Disposition: 01-Home or Self Care [...] 4 tabs, 0 Refill(s), Indication: prophylaxis, Pharmacy: [facility] [id number], Take 4 tablets by mouth 1 hour [...] today. Ordered: Office Visit Level 3 Est 75078
--- OUTSIDE RECORDS SUMMARY | 2016-09-18 16:06 | XMS REPORT | Continuity of Care Document ---
Author Author [facility] Organization [facility] Address Unknown Phone Unavailable Support Name Relationship Address Phone SRIDHAR BELLA MD Caregiver [facility] [address] [facility] [address] [place] [address] PIEDAD TOLEDO MD Caregiver [facility] [address] [facility] [place] [address] Unavailable DELIA HELM MD Caregiver [address] [place] [address] [address] [place] [phone] SUGEY MÁRQUEZ Next Of Kin [address] [place] [address] Insurance Providers Payer Name Policy Number Subscriber Name Relationship Medicare [id number] Amanda Márquez Self [facility] [id number] Amanda Márquez 19 Self Advance Directives Directive Response Recorded Date/Time Advanced Directives Type Living Will DPOA for Healthcare 10/30/13 7:54pm Ordered Resuscitation Status Full Code 03/08/14 7:25pm Resuscitation Documents on File No 03/08/14 8:11pm Chief Complaint and Reason for Visit Chief Complaint ATRIAL FIBRILLATION WITH RVR Reason for Visit New onset a-fib Hypertension Dyslipidemia Hypomagnesemia Abnormal TSH Problems Medical Problems Problem Onset Date Status New onset a-fib Unknown Active Hypertension Unknown Active Dyslipidemia Unknown Active Hypomagnesemia Unknown Active Abnormal TSH Unknown Active Medications Medication Dose Route Sig Days/Qty Instructions Order Date Discontinued Date Status Clonidine Hcl 0.5 Tab PO DAILY 05/25/10 Active Cyclobenzaprine Hcl 1 BEDTIME 05/25/10 10/29/11 Discontinued Estradiol 1 DAILY 05/25/10 02/24/12 Discontinued Hydrochlorothiazide 1 DAILY 05/25/10 Active Hydrocodone Bit/Acetaminophen NEEDED 05/25/10 02/24/12 Discontinued Labetalol Hcl 1 TWICE A DAY 05/25/10 02/28/12 Discontinued Atorvastatin Calcium 1 DAILY 05/25/10 Active Prednisone 1 DAILY 05/25/10 02/24/12 Discontinued Calcium Carbonate/Vitamin D3 1 Tab PO TWICE A DAY 02/24/12 Active Aspirin 325 Mg PO DAILY 04/02/13 03/09/14 Discontinued Labetalol HCl 200 Mg PO TWICE A DAY 90 Days 03/08/14 Active Potassium Chloride 20 Meq PO TWICE A DAY 30 Days 03/08/14 Active Tizanidine HCl 4 Mg PO BEDTIME 40 Days 03/08/14 Active Hydrocodone/Acetaminophen 1 Tab PO Every 6 Hours PRN PAIN 90 Days 03/08 Active Naproxen Sodium 220 Mg PO GIVE WITH BREAKFAST Take 1 tablet, by mouth, daily with breakfast. 03/08/14 Active Rivaroxaban 20 Mg PO GIVE WITH SUPPER 30 Qty 03/09/14 Active Sotalol HCl 40 Mg PO BEFORE MEALS TWICE A DAY 60 Qty 03/09/14 Active Social History Social History Problem Response Recorded Date/Time Smoking Status Never smoker 10/31/2013 9:08am Chewing Tobacco Status No 03/03/2012 8:00pm Hx Substance Use No 03/08/2014 6:14pm Hx Alcohol Use Y twice a year 03/08/2014 6:14pm Has the pt used tobacco in the last 12 months No 03/08/2014 8:14pm Query Response Start Date Stop Date Smoking Status Never smoker Hospital Discharge Instructions Instructions: Care Instructions: Reason for Hospitalization: afib I was in the hospital because (patient own words): feeling lightheaded for 2 days Discharge Diet: heart healthy Discharge Activity: No restriction Follow Up Appointments: Followup with Dr. Bella in 2 weeks. Call [phone] to schedule an appointment. Followup with Dr. Helm in 1-2 weeks. Patient Instructions: Have lab drawn in one week for magnesium and BMP. Prescription provided. Condition at time of discharge: Fair 1. Call your surgeon if you are having problems relating to your bowels at [phone]. Condition at time of discharge: Good KEEP THE AREA DRY. Condition at time of discharge: Good incision is completely healed. Mepilex 1.Dressing to remain in place until your follow up appointment. 2.If this dressing starts peeling up slightly, it may be reinforced, if it peels excessively, notify your surgeon's office. 3.You may shower with the dressing in place, but do not submerge in water 4.Do not allow water to seep under the dressing, if it should seep under, remove the dressing and notify your surgeon. Notify Physician If: Call your Surgeon if you have: 1.Chest pain, difficulty breathing, fever>100.5 degrees, chills, heart rate >100, confusion, or persistent nausea/vomitting. 2.Severe pain, swelling, redness, or warmth in either of your legs. 3.During office hours, call [phone] 4. After hours, please call [facility] at [phone], and have the insulation extruder operator page your Surgeon IN THE EVENT OF AN EMERGENCY, seek medical care at the nearest Emergency Room Condition at time of discharge: Good Plan of Care Discharge Date 03/09/14 4:45pm Disposition 01 DISCHARGED HOME, SELF-CARE Prescriptions See Medications Section Functional Status Query Response Date Recorded Physical Hygiene Self March 08, 2014 6:14pm Disabilities Visual March 08, 2014 7:22pm Devices Used Glasses March 08, 2014 7:22pm Dressing Self March 08, 2014 6:14pm Ambulation Self March 08, 2014 6:14pm Diet Self March 08, 2014 6:14pm Mental Status Alert March 08, 2014 7:28pm Disabilities Visual March 08, 2014 7:22pm Devices Used Glasses March 08, 2014 7:22pm Physical Hygiene Self March 08, 2014 6:14pm Dressing Self March 08, 2014 6:14pm Ambulation Self March 08, 2014 6:14pm Diet Self March 08, 2014 6:14pm Allergies, Adverse Reactions, Alerts Allergen Type Severity Reaction Status Last Updated enalapril maleate Allergy Severe angioedema,rash Active 03/08/14 propoxyphene napsylate Allergy Unknown RASH Active 03/08/14 Nitrofurantoin Macrocrystal Allergy Unknown hepatitis Active 03/08/14 ciprofloxacin HCl Allergy Unknown RASH Active 03/08/14 tramadol HCl Allergy Unknown RASH Active 03/08/14 enalaprilat dihydrate Allergy Severe angioedema,rash Active 03/08/14 Angiotensin-converting enzyme inhibitor Allergy Unknown ANGIOEDEMA Active 03/08/14 Sulfa (Sulfonamide Antibiotics) Allergy Unknown HEPATITIS Active 03/08/14 Morphine Allergy Unknown ITCHING Active 03/08/14 Nitrofurantoin Allergy Unknown hepatitis Active 03/08/14 Ciprofloxacin Allergy Unknown RASH Active 03/08/14 Cefdinir Allergy Unknown RASH Active 03/08/14 Immunizations Name Given Type Hx Influenza Vaccination Y 9-14 Historical Hx Pneumococcal Vaccination Y 6-14 Historical Hx Tetanus, Diptheria, Pertussis unknown Historical Hx Influenza Vaccination Y 9-14 Historical Hx Tetanus Diptheria unknown Historical Hx Tetanus, Diptheria, Pertussis unknown Historical Hx Tetanus Toxoid Vaccination unknown Historical Vital Signs Acute Vital Signs Vital Response Date/Time Temperature (Fahrenheit) 99.2 deg F (96.8 - 99.1) Temperature (Calculated Celsius) 37.21347 degrees C (36.0 - 37.3) Temperature Source Temporal Pulse Rate (adult) 75 bpm (60 - 100) Respiratory Rate 18 breaths/min (10 - 20) O2 Sat by Pulse Oximetry 96 % (90 - 100) Oxygen Delivery Method Room Air Blood Pressure 138/78 mm Hg Blood Pressure Source Automatic Cuff Height 5 ft 6 in Weight 180 lb Body Mass Index 29.0 kg/m^2 Results Test Source Date Result Interp. Ref. Range Comments Free Thyroxine March 09, 2014 5:18am 1.05 NG/DL N 0.78-2.19 Thyroid Stimulating Hormone (TSH) March 09, 2014 5:18am 7.70 MIU/L H 0.47-4.68 Activated Partial Thromboplast Time April 09, 2013 9:15am 29.5 SEC N 24-36 COMMENT SCU WILL CALL Alanine Aminotransferase (ALT/SGPT) March 08, 2014 6:08pm 43 U/L N 9- 52 Albumin March 08, 2014 6:08pm 4.2 G/DL N 3.5-5.0 Albumin/Globulin Ratio March 08, 2014 6:08pm 1.5 RATIO N 1.1-2.2 Alkaline Phosphatase March 08, 2014 6:08pm 170 U/L H 38-126 Amylase Level May 25, 2010 8:54am 51 U/L N 30-110 Anion Gap March 09, 2014 5:18am 7 MEQ/L N 5-15 Arterial Blood Base Excess May 29, 2010 5:45am 4.9 MMOL/L H -2.0- 2.0 Arterial Blood HCO3 May 29, 2010 5:45am 29 MEQ/L H 22-26 Arterial Blood Oxygen Content May 28, 2010 9:45am 30 - Arterial Blood Oxygen Saturation May 29, 2010 5:45am 97.0 % N 95.0- 98.0 Arterial Blood Partial Pressure CO2 May 29, 2010 5:45am 41 MMHG N 34 -45 Arterial Blood Total CO2 May 29, 2010 5:45am 30.5 MEQ/L H 23-27 Arterial Blood pH May 29, 2010 5:45am 7.460 H 7.350-7.450 Arterial Blood pO2 at Patient Temp May 29, 2010 5:45am 91 MMHG N 80- 100 Aspartate Amino Transf (AST/SGOT) March 08, 2014 6:08pm 33 U/L N 14- 36 B-Type Natriuretic Peptide June 01, 2010 5:00am 561 PG/ML H 15-100 BUN/Creatinine Ratio March 09, 2014 5:18am 16 RATIO N 6-26 Band Neutrophils # November 19, 2013 8:00am 0.6 T/MM3 - Band Neutrophils % November 19, 2013 8:00am 10.0 % DH 0-6 Basophils # (Auto) March 08, 2014 6:08pm 0.2 T/MM3 N 0-0.2 Basophils # (Manual) November 19, 2013 8:00am 0.3 T/MM3 H 0-0.2 Basophils % (Manual) November 19, 2013 8:00am 4.0 % H 0-2 Basophils (%) (Auto) March 08, 2014 6:08pm 1.9 % N 0-2 Blood Urea Nitrogen March 09, 2014 5:18am 16.0 MG/DL N 7-17 C-Reactive Protein November 19, 2013 8:00am 7.4 MG/L N 0-9 Calcium Level March 09, 2014 5:18am 9.9 MG/DL N 8.4-10.2 Calculated Osmolality March 09, 2014 5:18am 272 MOSM/KG N 261-280 Carbon Dioxide Level March 09, 2014 5:18am 30 MEQ/L N 22-30 Chemistry Specimen Hemolysis March 09, 2014 5:18am < 15 0-25 0-25 : No Hemolysis.26-70: Slight Hemolysis - can falsely elevate K and Urine Protein. 71-285: Moderate Hemolysis - can falsely elevate K, Troponin I, CA 19-9, PTH, CSF GLucose, and Urine Protein, and can falsely decrease Phenytoin. 286-999: Gross Hemolysis - can falsely elevate K, Troponin I, CA 19-9, PTH, CSF Glucose, and Urine Protine, and can falsely decrease Phenytoin. Recommend specimen recollection. Chloride Level March 09, 2014 5:18am 104 MEQ/L N 98-107 Conjugated Bilirubin March 08, 2014 6:08pm 0.00 MG/DL N 0.00-0.30 Creatinine March 09, 2014 5:18am 1.0 MG/DL N 0.7-1.2 Differential Total Cells Counted June 02, 2010 5:10am 100 % - Eosinophils # (Auto) March 08, 2014 6:08pm 0.2 T/MM3 N 0-0.5 Eosinophils # (Manual) November 19, 2013 8:00am 0.1 T/MM3 N 0-0.5 Eosinophils % (Manual) November 19, 2013 8:00am 2.0 % N 0-4 Eosinophils (%) (Auto) March 08, 2014 6:08pm 2.4 % N 0-4 Erythrocyte Sedimentation Rate November 19, 2013 8:00am 4 MM/HR N 0-20 Globulin March 08, 2014 6:08pm 2.8 G/DL N 2.4-3.6 Glomerular Filtration Rate Calc March 09, 2014 5:18am 55 - Glucose Level March 09, 2014 5:18am 97 MG/DL N 65-110 Hematocrit March 08, 2014 6:08pm 39.8 % N 36-46 Hemoglobin March 08, 2014 6:08pm 12.8 GM/DL N 12-16 Hypochromasia November 12, 2013 8:15am 1+ - Hyposegmented Neutrophils November 12, 2013 8:15am 2+ - PREDOMINANTLY BILOBED OR BAND NEUTRAPHILS PRESENT Icterus Index March 09, 2014 5:18am < 2 0-7 Immature Granulocyte # (Auto) March 08, 2014 6:08pm 0.00 T/MM3 N 0.00- 0.03 Immature Granulocyte % (Auto) March 08, 2014 6:08pm 0.0 % N 0.0-0.5 Lab Scanned Report October 26, 2013 10:43am LAB TEST FORM REQUEST [id number] - Lipase May 25, 2010 8:54am 57 U/L N 23-300 Lymphocytes # (Auto) March 08, 2014 6:08pm 4.7 T/MM3 N 1-4.8 Lymphocytes # (Manual) November 19, 2013 8:00am 2.0 T/MM3 N 1-4.8 Lymphocytes % (Manual) November 19, 2013 8:00am 31.0 % N 23-45 Lymphocytes (%) (Auto) March 08, 2014 6:08pm 54.8 % H 23-45 MRSA Specimen Source February 08, 2012 2:27pm Nasal - Magnesium Level March 09, 2014 5:18am 1.4 MG/DL L 1.6-2.3 Mean Corpuscular Hemoglobin March 08, 2014 6:08pm 27.0 UUG N 26-34 Mean Corpuscular Hemoglobin Concent March 08, 2014 6:08pm 32.2 GM/DL N 31-37 Mean Corpuscular Volume March 08, 2014 6:08pm 84.0 UM3 N 80-100 Mean Platelet Volume March 08, 2014 6:08pm 12.1 UM3 N 9.4-12.4 Metamyelocytes # November 05, 2013 8:20am 0.3 T/MM3 - Metamyelocytes % November 05, 2013 8:20am 4.0 % H 0-0 Methicillin-Resist S.aureus DNA PCR February 08, 2012 2:27pm Negative - Monocytes # (Auto) March 08, 2014 6:08pm 0.9 T/MM3 H 0-0.8 Monocytes # (Manual) November 19, 2013 8:00am 0.6 T/MM3 N 0-0.8 Monocytes % (Manual) November 19, 2013 8:00am 9.0 % N 0-9.0 Monocytes (%) (Auto) March 08, 2014 6:08pm 10.5 % H 0-9.0 Neutrophils # (Auto) March 08, 2014 6:08pm 2.6 T/MM3 N 1.8-7.7 Neutrophils # (Manual) November 19, 2013 8:00am 2.8 T/MM3 N 1.8-7.7 Neutrophils % (Manual) November 19, 2013 8:00am 44.0 % N 33-66 Neutrophils (%) (Auto) March 08, 2014 6:08pm 30.4 % L 33-66 Oxygen Delivery Method (LAB) May 29, 2010 5:45am Endotrach tube, % - Platelet Count March 08, 2014 6:08pm 344 T/MM3 N 130-400 Potassium Level March 09, 2014 5:18am 3.5 MEQ/L L 3.6-5 Prothromb Time International Ratio April 11, 2013 4:41am 1.48 H 0.86- 1.10 THERAPUTIC RANGE=2.00-3.00 FOR ANTI-THROMBOSIS THERAPUTIC RANGE=2.50- 3.50 FOR IMPLANTED VALVE RDW Standard Deviation March 08, 2014 6:08pm 54.3 FL H 36.9-50.2 Reactive Lymphocytes # June 02, 2010 5:10am 0.1 T/MM3 H 0-0 Reactive Lymphocytes % June 02, 2010 5:10am 1.0 % H 0-0 Red Blood Count March 08, 2014 6:08pm 4.74 M/MM3 N 4.00-5.20 Smudge Cells November 12, 2013 8:15am 1+ - Sodium Level March 09, 2014 5:18am 141 MEQ/L N 134-144 Total Bilirubin March 08, 2014 6:08pm 0.50 MG/DL N 0.20-1.30 Total Protein March 08, 2014 6:08pm 7.0 G/DL N 6.3-8.2 Troponin I March 08, 2014 6:08pm 0.015 ng/ml N 0-0.12 Turbidity March 09, 2014 5:18am < 20 0-20 Unconjugated Bilirubin March 08, 2014 6:08pm 0.10 MG/DL N 0.00-1.10 Urinalysis Comment March 08, 2014 6:28pm Microscopic not ind. - Has specimen been collected/obtained? Y Urine Amorphous Urates April 09, 2013 9:05am Moderate - COMMENT DO C&S IF INDICATEDHas specimen been collected/obtained? Y Urine Bacteria October 19, 2013 12:47pm None seen - Urine Bilirubin March 08, 2014 6:28pm Negative - Has specimen been collected/obtained? Y Urine Blood March 08, 2014 6:28pm Negative - Has specimen been collected/obtained? Y Urine Collection Type March 08, 2014 6:28pm Cleancatch-midstream - Has specimen been collected/obtained? Y Urine Color March 08, 2014 6:28pm Yellow - Has specimen been collected/obtained? Y Urine Culture Indicated May 25, 2010 8:56am Cult set up - Has specimen been collected/obtained? Y Urine Glucose (UA) March 08, 2014 6:28pm Negative - Has specimen been collected/obtained? Y Urine Ketones March 08, 2014 6:28pm Negative - Has specimen been collected/obtained? Y Urine Leukocyte Esterase March 08, 2014 6:28pm Trace H - Has specimen been collected/obtained? Y Urine Microscopic Not Indicated February 28, 2012 7:45am Not indicated - COMMENT C & S IF WBC GREATER THAN 10 & BACTERIA 1 PLUS OR MORE Has specimen been collected/obtained? Y Urine Mucus May 27, 2010 8:21am Present - Has specimen been collected/obtained? Y Urine Nitrite March 08, 2014 6:28pm Negative - Has specimen been collected/obtained? Y Urine Protein March 08, 2014 6:28pm Negative - Has specimen been collected/obtained? Y Urine RBC October 19, 2013 12:47pm None seen /HPF - Urine Specific [place] March 08, 2014 6:28pm <=1.005 L - Has specimen been collected/obtained? Y Urine Squamous Epithelial Cells October 19, 2013 12:47pm 0-5 - Urine Turbidity March 08, 2014 6:28pm Clear - Has specimen been collected/obtained? Y Urine Urobilinogen March 08, 2014 6:28pm 0.2 EU/DL - Has specimen been collected/obtained? Y Urine WBC October 19, 2013 12:47pm 1-3 /HPF - Urine WBC Clumps May 27, 2010 8:21am Few - Has specimen been collected/obtained? Y Urine pH March 08, 2014 6:28pm 6.0 - Has specimen been collected/ obtained? Y Vancomycin Level Trough November 19, 2013 8:00am 17.84 UG/ML N 15-20 White Blood Count March 08, 2014 6:08pm 8.6 T/MM3 N 4.5-11.0 Blood Culture Blood May 27, 2010 9:00am NO GROWTH AFTER 5 DAYS Gram Stain Knee, Intraoperative Site-Left February 28, 2012 8:03am Urine Culture Urine, Clean Catch Voided May 24, 2011 7:00pm Streptococcus Anginosus Procedures No known history of procedures. Encounters Encounter Location Date/Time Discharged Inpatient [facility] 03/08/14 7:20pm Registered Clinic [facility] 02/25/14 9:05am Recent Diagnosis New onset a-fib Hypertension Dyslipidemia Hypomagnesemia Abnormal TSH
[2016-09-18 16:08] VITALS: TEMP 98; Ht 165.1 cm; Wt 81.1 kg
[2016-09-18] MEDS ORDERED: ATOR10TA64 PO (16:20)
[2016-09-18] MEDS ORDERED: SPIR25TA4 PO (16:24)
[2016-09-18] MEDS ORDERED: PROM5SYR PO (16:25)
--- NOTE | 2016-09-18 16:25 | ERPDOC ---
Departure Disposition Decision Date: September 18, 2016 Disposition Decision Time: 16:58 Disposition: 01 DISCHARGED HOME, SELF-CARE Impression Impression Impression: Primary Impression: Cough Severity: Moderate Condition: Stable Seen By: Mid-level only Referrals: DELIA HELM MD (Family) Patient Instructions: Acute Cough (ED) Problems/Meds/Labs Reviewed?: Yes Medications reviewed and manag: Yes Additional Instructions: Take the Tussionex as prescribed. May also use the Tessalon Perles as needed as well. Follow up with your primary care provider if you are not improving. Return to Er with any fever or further concerns. Follow up care ordered?: Yes Mental Status: Alert, Oriented Scripts Benzonatate (Tessalon Perle) 100 Mg Capsule 100 MG PO Q8H for COUGH, #21 CAP 0 Refills Prov: GRACY LINDER APRN 09/18/16 Hydrocodone/Chlorphen P-Stirex (Tussionex Pennkinetic Susp) 115 Ml Araceli.er.12h 5 ML PO BID Y for COUGH, #120 ML 0 Refills Prov: GRACY LINDER APRN 09/18/16 HPI - Cough/URI General Chief Complaint: Cough,Fever,Flu,URI Stated Complaint: COUGH,POSS BRONCHITIS Time Seen by Provider: 16:12 Source: patient Exam Limitations: no limitations HPI - Cough/URI Initial Comments She has felt like she has had a cold coming on over the last week. She developed a cough as well. Cough is not really productive and she has not had a fever at all. Has had increased nasal congestion and drainage. She is having increased cough at night when she lays down. Has been taking Promethazine with Codeine cough medication but it has not helped a lot. She has had pneumonia twice so wanted to get checked out. Occurred At: home Onset/Timing: Gradual Duration: 1 week Prior Episodes/Possible Cause: no prior episodes Associated Symptoms: cough, nasal congestion, nasal drainage, DENIES: chest pain/soreness, dizziness, earache, facial pain, fever/chills, headache, lightheadedness, muscle aches, shortness of breath, sinus infection, sore throat , wheezing Hx of Similar Symptoms: No Allergies: Coded Allergies: enalapril maleate (Verified Allergy, Severe, angioedema,rash, 03/08/14) angioedema,airway obstruction,difficult intubation,rash enalaprilat dihydrate (Verified Allergy, Severe, angioedema,rash, 03/08/14 ) angioedema,airway obstruction,difficult intubation,rash GENTRY Inhibitors (Verified Allergy, Unknown, ANGIOEDEMA, 03/08/14) Nitrofurantoin Macrocrystal (Verified Allergy, Unknown, hepatitis, ) Sulfa (Sulfonamide Antibiotics) (Verified Allergy, Unknown, HEPATITIS, ) cefdinir (Verified Allergy, Unknown, RASH, 03/08/14) ciprofloxacin (Verified Allergy, Unknown, RASH, 03/08/14) ciprofloxacin HCl (Verified Allergy, Unknown, RASH, 03/08/14) morphine (Verified Allergy, Unknown, ITCHING, 03/08/14) nitrofurantoin (Verified Allergy, Unknown, hepatitis, 03/08/14) propoxyphene napsylate (Verified Allergy, Unknown, RASH, 03/08/14) tramadol HCl (Verified Allergy, Unknown, RASH, 03/08/14) Past History Past Medical History Metabolic: hypercholesterolemia, hypertension Cardiac: ND Musculoskeletal: back pain, other Surgical History General: appendix, back, gallbladder Reproductive/: hysterectomy Vaccines Hx Influenza Vaccination: Yes () Hx Pneumococcal Vaccination: Yes () Social History Does patient use chewing tobac: No Sexuality: male partner Review of Systems Constitutional Constitutional: DENIES: chills, dizziness, fatigue, fever, weakness Eyes Vision: DENIES: blurring, double vision ENMT Ears: DENIES: drainage, pain Sinuses: DENIES: congestion, rhinorrhea Mouth/Throat: DENIES: scratchy throat, sore throat Cardiovascular Cardiac: DENIES: chest pain, dyspnea on exertion, orthopnea Rhythm/Rate: DENIES: irregular beat, palpitations Pulmonary Respiratory: cough, pneumonia hx, DENIES: dyspnea, sputum, tachypnea GI Upper Abdomen: DENIES: nausea, pain, vomiting Lower Abdomen: DENIES: constipation, diarrhea, pain Integumentary Skin: DENIES: rash Neurological General: DENIES: headache, numbness, tingling, weakness Physical Exam General General Nourishment: well nourished, well developed, appears stated age, no acute distress, adult General Body Habitus: well groomed Vitals and Pain First Documented Vital Signs Date Time Temp Pulse Resp B/P Pulse Ox O2 Delivery O2 Flow Rate FiO2 09/18/16 16:08 98.0 77 18 148/77 95 Room Air Weight: Kilograms: 81.100 Height (feet): 5 Height (inches): 5.00 Triage Pain Scale: RN VS reviewed by Provider: Yes Normal Exams: Neck: Full range of motion, without adenopathy, JVD, bruits or thyromegaly Chest/Resp: Clear all wing, with good airflow, and symmetry bilaterally CV: Regular rate and rhythm, without murmur or gallop, Pulses 2+ all extremities, capillary refill, <2 seconds all ext., no pedal edema noted Abdomen: Bowel sounds positive, soft, non-tender, non-distended, no hepatosplenomegaly, masses or bruits noted Lymphatic: No lymphadenopathy, or lymphedema noted Integumentary: No rashes, hives, or bruising noted Neurologic: Patient is alert, and oriented Psychiatric: Patient exhibits, appropriate attention, emotion and affect Differential Diagnoses Differential Diagnoses Considering: Acute Bronchitis, Pneumonia Progress Results/Orders Orders Procedure Category Date Status Time Chest, Pa & Lateral RAD 09/18/16 Taken Progress Progress Chest xray is negative for pneumonia today. Will have her try some Tessalon Perles and Tussionex for the cough. Have her follow up with her PCP if not improving at all. Xray Xray : Reason for Exam: cough Xray: CXR PA/Lat Interpretation: Normal GRACY LINDER APRN September 18, 2016 16:25
--- OUTSIDE RECORDS SUMMARY | 2016-09-18 16:29 | XMS REPORT | Continuity of Care Document ---
Author Author [facility] Organization [facility] Address Unknown Phone Unavailable Support Name Relationship Address Phone SRIDHAR BELLA MD Caregiver [facility] [address] [facility] [address] [place] [address] PIEDAD TOLEDO MD Caregiver [facility] [address] [facility] [address] Unavailable DELIA HELM MD Caregiver [address] [place] [address] [address] [place] [phone] SUGEY MÁRQUEZ Next Of Kin [address] [place] [address] Insurance Providers Payer Name Policy Number Subscriber Name Relationship Medicare [id number] Amanda Márquez Self [facility] [id number] Amanda Márquez 19 Self Advance Directives Directive [...] with Dr. Bella in 2 weeks. Call [phone] to schedule an appointment. Followup with Dr. Helm in 1-2 weeks. Patient Instructions: Have lab drawn in one week for magnesium and BMP. Prescription provided. Condition at time of discharge: Fair 1. Call your surgeon if you are having problems relating to your bowels at [phone]. Condition at time of discharge: Good KEEP [...] of your legs. 3.During office hours, call [phone] 4. After hours, please call [facility] at [phone], and have the furnace utility operator page your Surgeon IN THE EVENT [...] F (96.8 - 99.1) Temperature (Calculated Celsius) 37.24720 degrees C (36.0 - 37.3) Temperature Source [...] 26, 2013 10:43am LAB TEST FORM REQUEST [id number] - Lipase May 25, 2010 8:54am 57 [...] 12:47pm None seen /HPF - Urine Specific [place] March 08, 2014 6:28pm <=1.005 L - [...] procedures. Encounters Encounter Location Date/Time Discharged Inpatient [facility] 03/08/14 7:20pm Registered Clinic [facility] 02/25/14 9:05am Recent Diagnosis New onset a-fib Hypertension Dyslipidemia Hypomagnesemia Abnormal TSH
[2016-09-18] MEDS ORDERED: HYDR115S2 PO (16:59)
[2016-09-18] MEDS ORDERED: BENZ100C97 PO (16:59)
[2016-09-18 17:06] VITALS: BP 134/67; PULSE 70; RESP 19; O2SAT 94
--- NOTE | 2016-09-19 09:46 | DI ---
INDICATION: ITS.REASON: cough PROCEDURE: CHEST 2-VIEWS UPRIGHT (PA \T\ LAT) Encounter: Initial COMPARISON: March 08, 2014 FINDINGS: The lungs are clear without evidence of focal abnormal airspace opacity. There is no pleural effusion or pneumothorax. Eventration of both hemidiaphragms with elevation on the left. The heart size, mediastinal contours and pulmonary vascularity are within normal limits. Bilateral shoulder replacements. Cervical spine hardware. IMPRESSION: No acute cardiopulmonary disease. .
== END 2016-09-18 17:06 | disposition home or self-care (01) ==
LOC: ED 16:00
DX: R05 Cough (principal)